=== PATIENT | male | born 1950 | race Caucasian/White ===

== ENCOUNTER → 2018-03-26 | Outpatient (CLI) | payer MEDICARE, BC ==
[2012-03-01 17:30] VITALS: BP 138/68
[~2018-03-26] MED LIST: ADVAIR 100/28 DISKU1 IH; CETIRIZINE; HUMIRA40 MG/0.8; NORCO 325 MG-51 TAB PO; VENTOLIN0.09 MG IH
== END ==
LOC: RAD 10:52
DX: J01.00 Acute maxillary sinusitis, unspecified (principal); J32.0 Chronic maxillary sinusitis; B99.9 Unspecified infectious disease; J34.89 Other specified disorders of nose and nasal sinuses; R55 Syncope and collapse